=== PATIENT | female | born 1965 | race Caucasian/White ===

== ENCOUNTER 2020-10-05 08:46 | Outpatient (CLI) | payer OTHER, SELFPAY ==
--- NOTE | 2020-10-05 08:49 | MM_ITS ---
WS: [id number] Bilateral screening digital mammogram, 10/05/2020 Clinical Data: SCREENING Comparison: 09/22/2019, 09/21/2018, 09/15/2017, 09/05/2016, 08/30/2015, 07/13/2014, 07/12/2013, 2, 05/02/2011. Findings: The breast parenchymal pattern shows fibroglandular tissue No spiculated masses or clustered calcific ations are seen. There are no secondary signs of carcinoma. MM/[id number] Impression: 1. Negative bilateral mammogram unchanged. 2. Recommend annual screening mammograms. BIRADS: 1-Negative FOLLOW UP: 1 Year Follow-up The CAD relay checker was used.
== END 2020-10-05 08:47 | disposition home or self-care (01) ==
LOC: RADSHAW 08:48
PROVIDERS: PCP Nurse Practitioner Primary Care; Visit Provider Nurse Practitioner
DX: Z12.31 Encounter for screening mammogram for malignant neoplasm of breast (principal)
CPT/HCPCS: 77067

== ENCOUNTER 2021-07-16 06:08 | Day surgery (SDC) | payer OTHER, SELFPAY ==
[2021-07-11 13:24] VITALS: BMI 25.0
--- NOTE | 2021-07-16 06:18 | P.HP_ITS ---
Same Day Surgery H&P Indication for Procedure/HPI DATE OF PROCEDURE: July 16, 2021 CHIEF COMPLAINT/INDICATIONFOR SURGICAL PROCEDURE: Screening colonoscopy PREOP DIAGNOSIS: Screening colonoscopy PLANNED PROCEDRUE: Operation Date: 07/16/21 07:30 Proposed Procedures p Colonoscopy 51278 k59.00(Not Applicable) - Gustavo Lobato MD This is a pleasant 55 years old female patient referred to my practice to discuss potential screening colonoscopy as she had one before few years and was reported as normal except that she had a small colon and also was told that the pediatric scope was used. Patient denies history of polyps or bleeding per rectum or history of colon cancer or nonintentional weight loss. But she does report that she does have an element of constipation. Outside records from the [facility] showed colonoscopy report was found mild smallmouth diverticulosis in the sigmoid colon, internal hemorrhoid tags were found in the rectum, there was no evidence of angiectasia/AVM malformation, colitis, polyps, tumors or melanosis in the colon. Colonoscopy was done on 01/15/2016 Interim history 07/15/2021 Patient comes today for screening colonoscopy Patient reports to me that she was told that her colon was narrow and he had to use a pediatric scope over the [facility], likely demand an EGD or enteroscopy as the [facility] does not carry pediatric service as far as I know. I did explain for the patient and her spouse that if distended colonoscopy is not able to navigate as it should be we will attempt an EGD if that did not work we will send the patient for barium enema at some point. ROS All systems have been reviewed negative except as for the above or per problem list Medications/Allergies* Home Medications Medication Instructions Recorded Confirmed Type estradiol 1 mg tablet 1 mg PO DAILY 04/02/21 07/11/21 History levothyroxine 75 mcg capsule 75 mcg PO DAILY 04/02/21 07/11/21 History Allergies/Adverse Reactions Allergy/AdvReac Type Severity Reaction Status Date / Time Sulfa (Sulfonamide Allergy Intermediate rash Verified 04/04/21 11:52 Antibiotics) Pertinent History/Comorbid Conditions* Family History (Updated 04/02/21 @ 08:28 by Evelia Ann) CAD (coronary artery disease) Mother Father Cancer Mother Father Hypertension Mother Denies family history of Diabetes Stroke Social History Smoking and tobacco status: never smoked Alcohol intake: current Alcohol intake frequency: few times a week Lives independently: Yes Household members: spouse Pertinent Exam Findings alert, oriented x 3, regular rate & rhythm and procedure specific exam findings (Abdominal examination nontender nondistended soft) Recommendations Surgery/Procedure today (Colonoscopy with possible biopsy) Other Plans: Plan of care; After thorough history and physical examination and reviewing the chart, plan to perform screening colonoscopy. I discussed with the patient in details the risks,benefits,alternatives and indications.The risk of aspiration, bleeding, soft tissue injury, perforation of the colon and other potential concomitant complications were explained to the patient in details,also the potential need for Laproscoy/Laparotomy to repair any related complications including but not limited to colectomy and or Closotomy.The patient understood this well and did agree to proceed. Rationale was carefully and clearly discussed with the patient.Appropriate informed consent have been reviewed and signed All questions have been answered and all concerns have been addressed to patient's satisfaction. 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
[2021-07-16 06:37] VITALS: BP 113/67; PULSE 60; RESP 18; TEMP 36.5
[2021-07-16] MEDS: sodium chloride 0.9% 1,000 ML 30 ML IV (06:51)
--- NOTE | 2021-07-16 07:25 | ANES.PREANE2 ---
Pre-Anesthetic Assessment Pre-Anesthetic Assessment: Height/Weight: Height 1.7 m Weight 72.575 kg Temp Pulse Resp BP 97.7 F 60 18 113/67 07/16/21 06:37 07/16/21 06:37 07/16/21 06:37 07/16/21 06:37 Preop Diagnosis: Screening colonoscopy Proposed Procedure: Operation Date: 07/16/21 07:30 Proposed Procedures p Colonoscopy 92474 k59.00(Not Applicable) - Gustavo Lobato MD Was Beta Jay taken within 24 hours: N/A Was Clonidine taken within 24 hours: N/A Last intake: Intake Last Liquid Date 07/15/21 Last Liquid Time 19:00 Last Solid Date 07/14/21 Last Solid Time 20:00 Social: Social History: Alcohol Packs per day: beer Exam: Pre-Anes Outpt Exam: alert Airway: Submandibular: WNL Cervical ROM: WNL MP: 1 Pulmonary: Pulmonary: None reported CV/HEM: CV/HEM: None reported : : None reported Hepatic: Hepatic: None reported GI: GI: None reported Metabolic: Metabolic: Thyroid Musc/skel: Musc/skel: None reported Neuropsych: Neuropsych: Anxiety Anesthetic Plan: ASA status: 2 Anesthesia: Anesthesia Evaluation and MAC Risk of > 500 ml blood loss (7ml/kg in children): No Meds/Allergies Current Medications: Current Medications Generic Name Dose Route Start Last Admin Trade Name Freq PRN Reason Stop Dose Admin Sodium Chloride 1,000 mls @ 30 ml s/hr 07/16/21 06:15 07/16/21 06:51 Sodium Chloride 0.9% IV 30 mls/hr .Q24H COREY Administration PFSH Anesthesia PFSH: Family History Mother CAD (coronary artery disease) Cancer Hypertension Father CAD (coronary artery disease) Cancer Denies family history of Diabetes Stroke Social History Smoking and tobacco status: never smoked Alcohol intake: current Alcohol intake frequency: few times a week Lives independently: Yes Household members: spouse Data Anesthesia Cardiac Studies: No Data to Display
[2021-07-16 07:52] VITALS: BP 80/52; PULSE 62; RESP 18; O2SAT 97
[2021-07-16 08:05] VITALS: BP 92/57; PULSE 62; RESP 18; O2SAT 98
--- NOTE | 2021-07-16 15:35 | ANE.PACU2 ---
Inpatient post-anesthesia follow up: Airway intact: Yes Vital signs: Temperature 97.7 F Pulse Rate 62 Respiratory Rate 18 Blood Pressure 92/57 Pulse Oximetry 98 Oxygen Delivery Me thod Room Air Oxygen Flow Rate Fraction of Inspir ed Oxygen Hydration adequate: Yes Nausea and vomiting: No Pain level: 1 Mental status: Baseline
== END 2021-07-16 08:25 | disposition home or self-care (01) ==
PROVIDERS: PCP Nurse Practitioner Primary Care; Visit Provider Surgery
PROC: 0DJD8ZZ Inspection of Lower Intestinal Tract, Via Natural or Artificial Opening Endoscopic (ICD-10-PCS; CPT 45378; principal; 2021-07-16 07:30)
DX: Z12.11 Encounter for screening for malignant neoplasm of colon (principal)
CPT/HCPCS: 45378; 96360; G0121; J2704; J7030

== ENCOUNTER 2022-01-02 14:10 | Outpatient (CLI) | payer OTHER, SELFPAY ==
--- NOTE | 2022-01-02 14:16 | MM_ITS ---
WS: [id number] BILATERAL DIGITAL SCREENING MAMMOGRAPHY WITH CAD CLINICAL INFORMATION: SCREENING HISTORY: Screening mammogram. No current complaints. COMPARISON: October 05, 2020 TECHNIQUE: Bilateral CC and MLO views. FINDINGS: Scattered fibroglandular densities bilaterally. Stable intramammary lymph nodes upper outer breasts b ilaterally. A few tiny incidental punctate calcifications. No suspicious focal mass, asymmetry, calci fications, or architectural distortion. No evidence of malignancy. MM/[place] [id number] IMPRESSION: BI-RADS: 2-Benign FOLLOW UP: 1 Year Follow-up Recommend return to annual screening mammography.
== END 2022-01-02 14:11 | disposition home or self-care (01) ==
PROVIDERS: PCP Nurse Practitioner Primary Care; Visit Provider Nurse Practitioner
DX: Z12.31 Encounter for screening mammogram for malignant neoplasm of breast (principal)
CPT/HCPCS: 77067

== ENCOUNTER 2023-01-01 20:00 | Outpatient (CLI) | payer OTHER, SELFPAY | END 2023-01-01 20:01 | disposition home or self-care (01) | LOC: SLEEP 01-02 02:41 | PROVIDERS: PCP Nurse Practitioner Primary Care; Visit Provider Nurse Practitioner | DX: R53.83 Other fatigue (principal); R06.83 Snoring; G47.33 Obstructive sleep apnea (adult) (pediatric) | CPT/HCPCS: 95810 ==

== ENCOUNTER 2023-02-21 08:07 | Outpatient (CLI) | payer OTHER, SELFPAY ==
--- NOTE | 2023-02-21 08:34 | MM_ITS ---
WS: [id number] DIAGNOSTIC BILATERAL DIGITAL BREAST TOMOSYNTHESIS MAMMOGRAPHY WITH CAD RIGHT breast ultrasound, limited HISTORY: RT BREAST MASS COMPARISON: None available. TECHNIQUE: Bilateral craniocaudad, mediolateral oblique, and mediolateral views are submitted with to mosynthesis and SM. Spot compression RIGHT CC and MLO. Computer aided detection utilized. Breast composition: There are scattered areas of fibroglandular density. No underlying mass is identi fied in the upper-outer quadrant in the region of the palpable abnormality. Benign lymph nodes along the axillary tails of each breast. No distortion. RIGHT breast ultrasound, limited. Ultrasound is directed to the upper-outer quadrant of the RIGHT breast in the area the palpable abnor mality. This is near 12:00. No abnormality is identified. MM/[place] [id number] IMPRESSION: BI-RADS: 2-Benign FOLLOW UP: 1 Year Follow-up
--- NOTE | 2023-02-21 09:38 | US_ITS ---
WS: [id number] DIAGNOSTIC BILATERAL DIGITAL BREAST TOMOSYNTHESIS MAMMOGRAPHY WITH CAD RIGHT breast ultrasound, limited HISTORY: RT BREAST MASS COMPARISON: None available. TECHNIQUE: Bilateral craniocaudad, mediolateral oblique, and mediolateral views are submitted with to mosynthesis and SM. Spot compression RIGHT CC and MLO. Computer aided detection utilized. Breast composition: There are scattered areas of fibroglandular density. No underlying mass is identi fied in the upper-outer quadrant in the region of the palpable abnormality. Benign lymph nodes along the axillary tails of each breast. No distortion. RIGHT breast ultrasound, limited. Ultrasound is directed to the upper-outer quadrant of the RIGHT breast in the area the palpable abnor mality. This is near 12:00. No abnormality is identified. US/US breast RT limited* [id number] IMPRESSION: BI-RADS: 2-Benign FOLLOW UP: 1 Year Follow-up
== END 2023-02-21 08:08 | disposition home or self-care (01) ==
LOC: RAD 08:10
PROVIDERS: PCP Nurse Practitioner Family; Visit Provider Nurse Practitioner
DX: N63.41 Unspecified lump in right breast, subareolar (principal)
CPT/HCPCS: 76642; 77062; G0279

== ENCOUNTER → 2023-06-02 09:55 | Outpatient (BNVA) | payer OTHER, SELFPAY | PROVIDERS: PCP Nurse Practitioner Family; Visit Provider Podiatrist Foot & Ankle Surgery | DX: M20.22 Hallux rigidus, left foot (principal); M20.21 Hallux rigidus, right foot; M25.872 Other specified joint disorders, left ankle and foot; M21.611 Bunion of right foot; M21.612 Bunion of left foot | CPT/HCPCS: 73630; 99204 ==

== ENCOUNTER → 2023-12-29 13:32 | Outpatient (BNVA) | payer OTHER, SELFPAY | PROVIDERS: PCP Nurse Practitioner Family; Visit Provider Podiatrist Foot & Ankle Surgery | DX: M20.22 Hallux rigidus, left foot (principal); M20.21 Hallux rigidus, right foot; M25.872 Other specified joint disorders, left ankle and foot; M21.611 Bunion of right foot; M21.612 Bunion of left foot | CPT/HCPCS: 99213 ==

== ENCOUNTER → 2024-03-22 13:32 | Outpatient (BNVA) | payer OTHER, SELFPAY | PROVIDERS: PCP Nurse Practitioner Family; Referring Provider Nurse Practitioner; Visit Provider Obstetrics & Gynecology | DX: R39.9 Unspecified symptoms and signs involving the genitourinary system (principal); Z01.419 Encounter for gynecological examination (general) (routine) without abnormal findings | CPT/HCPCS: 81000 ==

== ENCOUNTER 2024-03-23 13:51 | Outpatient (CLI) | payer OTHER, SELFPAY ==
--- NOTE | 2024-03-23 14:00 | MM_ITS ---
WS: [id number] BILATERAL 3D TOMOSYNTHESIS DIGITAL SCREENING MAMMOGRAPHY WITH CAD CLINICAL INFORMATION: SCREENING HISTORY: Screening mammogram. No current complaints. COMPARISON: 02/21/2023 TECHNIQUE: Bilateral CC and MLO views. FINDINGS: Scattered fibroglandular densities bilaterally. No suspicious focal mass, asymmetry, calcifications, or architectural distortion. No evidence of malignancy. Similar-appearing incidental intramammary lym ph nodes. Incidental punctate calcifications. MM/[place] [id number] IMPRESSION: BI-RADS: 2-Benign FOLLOW UP: 1 Year Follow-up Recommend return to annual screening mammography.
== END 2024-03-23 13:52 | disposition home or self-care (01) ==
LOC: MOBLMAM 14:04
PROVIDERS: PCP Nurse Practitioner; Visit Provider Nurse Practitioner
DX: Z12.31 Encounter for screening mammogram for malignant neoplasm of breast (principal); R92.323 Mammographic fibroglandular density, bilateral breasts
CPT/HCPCS: 77063; 77067

== ENCOUNTER → 2024-04-21 09:56 | Outpatient (BNVA) | payer OTHER, SELFPAY | PROVIDERS: PCP Nurse Practitioner; Referring Provider Nurse Practitioner; Visit Provider Internal Medicine | DX: E03.8 Other specified hypothyroidism (principal); E06.3 Autoimmune thyroiditis; R53.83 Other fatigue; Z86.69 Personal history of other diseases of the nervous system and sense organs; M21.611 Bunion of right foot; M21.612 Bunion of left foot; M20.22 Hallux rigidus, left foot; M20.21 Hallux rigidus, right foot; M25.872 Other specified joint disorders, left ankle and foot | CPT/HCPCS: 99204; 99213 ==

== ENCOUNTER 2024-06-22 09:25 | Outpatient (CLI) | payer OTHER, SELFPAY ==
[2024-06-22 10:30] LABS: Free T4 Free Thyroxine 1.32 ng/dL (0.82-1.77)
[2024-06-23 09:48] LABS: T3 Total 97 ng/dL (76-181)
== END 2024-06-22 09:26 | disposition home or self-care (01) ==
LOC: LAB 09:26
PROVIDERS: PCP Nurse Practitioner; Visit Provider Internal Medicine
DX: E03.9 Hypothyroidism, unspecified (principal)
CPT/HCPCS: 36415; 83516; 84439; 84443; 84480

== ENCOUNTER → 2024-07-01 07:43 | Outpatient (BNVA) | payer OTHER, SELFPAY | PROVIDERS: PCP Nurse Practitioner; Visit Provider Internal Medicine | DX: E03.8 Other specified hypothyroidism (principal); E06.3 Autoimmune thyroiditis; R53.83 Other fatigue; Z86.69 Personal history of other diseases of the nervous system and sense organs; Z79.890 Hormone replacement therapy | CPT/HCPCS: 99214 ==

== ENCOUNTER 2024-09-06 13:48 | Outpatient (CLI) | payer OTHER, SELFPAY ==
[2024-09-06 15:02] LABS: Thyroid Stimulating Hormone 0.87 uIU/mL (0.27-4.20)
[2024-09-07 08:09] LABS: T3 Total 156 ng/dL (76-181)
== END 2024-09-06 13:49 | disposition home or self-care (01) ==
LOC: LAB 13:49
PROVIDERS: PCP Nurse Practitioner; Visit Provider Internal Medicine
DX: E03.8 Other specified hypothyroidism (principal); E06.3 Autoimmune thyroiditis
CPT/HCPCS: 36415; 84439; 84443; 84480

== ENCOUNTER → 2024-10-14 09:16 | Outpatient (BNVA) | payer OTHER, SELFPAY | PROVIDERS: PCP Nurse Practitioner; Visit Provider Internal Medicine | DX: E03.8 Other specified hypothyroidism (principal); E06.3 Autoimmune thyroiditis; R53.83 Other fatigue; Z86.69 Personal history of other diseases of the nervous system and sense organs; Z79.890 Hormone replacement therapy | CPT/HCPCS: 99214 ==

== ENCOUNTER → 2024-12-21 08:15 | Outpatient (BNVA) | payer OTHER, SELFPAY | PROVIDERS: PCP Nurse Practitioner; Visit Provider Internal Medicine | DX: E03.8 Other specified hypothyroidism (principal); E06.3 Autoimmune thyroiditis; R53.83 Other fatigue; Z86.69 Personal history of other diseases of the nervous system and sense organs | CPT/HCPCS: 36415; 84439; 84443; 99214 ==

== ENCOUNTER → 2025-01-19 09:18 | Outpatient (BNVA) | payer OTHER, SELFPAY | PROVIDERS: PCP Nurse Practitioner; Visit Provider Podiatrist Foot & Ankle Surgery | DX: M21.611 Bunion of right foot (principal); M21.612 Bunion of left foot; M20.22 Hallux rigidus, left foot; M20.21 Hallux rigidus, right foot; M25.872 Other specified joint disorders, left ankle and foot | CPT/HCPCS: 99213 ==

== ENCOUNTER 2025-02-08 09:27 | Outpatient (CLI) | payer OTHER, SELFPAY ==
--- NOTE | 2025-02-08 09:30 | MR_ITS ---
WS: [id number] MRI LUMBAR SPINE NONCONTRAST TECHNIQUE: Sagittal T1, T2 and STIR imaging. Axial T1 and T2 imaging. CLINICAL INFORMATION: LOW BACK PAIN COMPARISON: None. FINDINGS: Mild lumbar curve. No acute compression. Disc desiccation worse at L4-L5 and L5- S1 with endplate degenerative changes. Slight retrolisthesis L4 on L5 and L5 on S1. Mild disc bulging L3-4. L1-L2: Mild annular bulging. Mild facet arthropathy. Foramen are patent. L2-L3: Mild annular bulging. Mild facet arthropathy. Spinal canal and foramen are patent. L3-L4: Mild annular bulging. Moderate central canal stenosis. Impingement of the RIGHT greater than LEFT subarticular recess. Mild RIGHT foraminal narrowing with a small RIGHT foraminal protrusion. Small RIGHT synovial cyst contributes to impingement on the RIGHT subarticular recess. Synovial cyst measures 6 mm. Moderate facet arthropathy with small facet effusions. L4-L5: Mild disc bulging with mild central canal stenosis. Impingement on the traversing L5 nerve roots in the subarticular recess. Moderate LEFT foraminal narrowing. Moderate facet arthropathy. L5-S1: Disc osteophyte complex with impingement on the RIGHT S1 nerve root. Correlation S1 nerve root symptoms. Moderate LEFT greater than RIGHT foraminal narrowing. Moderate facet arthropathy. Visualized pelvic bony structures: Normal. Paravertebral soft tissues: Normal. Cholelithiasis. MR/MR lumbar spine wo con* [id number] IMPRESSION: 1. Cholelithiasis. This could be followed-up with ultrasound. 2. Moderate central canal stenosis L3-4 with impingement subarticular recess. RIGHT 6 mm synovial cyst contributes to RIGHT subarticular recess stenosis. 3. Small RIGHT foraminal protrusion L3-4 impinges the exiting RIGHT L3 nerve r oot. 4. Mild central canal stenosis L4-5. Impingement traversing L5 nerve roots in the subarticular recess. Moderate LEFT foraminal narrowing at this level. 5. Disc osteophyte complex L5-S1 with impingement RIGHT S1 nerve root. Recomme nd correlation RIGHT S1 nerve root symptoms. 6. Moderate LEFT greater than RIGHT L5-S1 foraminal narrowing.
== END 2025-02-08 09:28 | disposition home or self-care (01) ==
PROVIDERS: PCP Nurse Practitioner; Visit Provider Nurse Practitioner
DX: M48.061 Spinal stenosis, lumbar region without neurogenic claudication (principal); K80.20 Calculus of gallbladder without cholecystitis without obstruction; M71.38 Other bursal cyst, other site; M51.26 Other intervertebral disc displacement, lumbar region; R93.7 Abnormal findings on diagnostic imaging of other parts of musculoskeletal system; M25.78 Osteophyte, vertebrae; M48.07 Spinal stenosis, lumbosacral region; M43.8X6 Other specified deforming dorsopathies, lumbar region; M51.369 Other intervertebral disc degeneration, lumbar region without mention of lumbar back pain or lower extremity pain; M47.896 Other spondylosis, lumbar region; M47.897 Other spondylosis, lumbosacral region
CPT/HCPCS: 72148

== ENCOUNTER 2025-03-02 08:25 | Outpatient (CLI) | payer OTHER, SELFPAY ==
--- NOTE | 2025-03-02 08:30 | US_ITS ---
WS: [id number] RIGHT UPPER QUADRANT ULTRASOUND HISTORY: GALLSTONES/RUQ PAIN COMPARISON: None available. Liver: 14.2 cm in length. Normal size liver and echogenicity. No bile duct dilatation or mass. Portal Vein: Normal hepatopetal flow with monophasic waveform. Gallbladder: Cholelithiasis. Normally distended gallbladder with numerous stones. No pericholecystic fluid or gallbladder wall thickening. CBD: 0.3 cm Pancreas: Normal size and echogenicity. Right kidney: 10.0 cm in length. Normal size and echogenicity. No hydronephrosis or mass. Aorta and IVC: Unremarkable abdominal aorta and IVC. No ascites. US/US abdomen limited [id number] IMPRESSION: 1. Cholelithiasis without acute cholecystitis. Numerous stones within the gall bladder lumen. 2. No hepatobiliary duct dilatation.
[2025-03-02 10:55] LABS: Thyroid Stimulating Hormone 3.88 uIU/mL (0.27-4.20)
== END 2025-03-02 08:26 | disposition home or self-care (01) ==
PROVIDERS: Absent Provider Internal Medicine; PCP Nurse Practitioner; Visit Provider Nurse Practitioner
DX: K80.20 Calculus of gallbladder without cholecystitis without obstruction (principal); E06.3 Autoimmune thyroiditis; E03.8 Other specified hypothyroidism
CPT/HCPCS: 36415; 76705; 84443

== ENCOUNTER 2025-04-19 08:49 | Outpatient (CLI) | payer OTHER, SELFPAY ==
--- NOTE | 2025-04-19 09:00 | MM_ITS ---
WS: [id number] BILATERAL 3D TOMOSYNTHESIS DIGITAL SCREENING MAMMOGRAPHY WITH CAD CLINICAL INFORMATION: SCREENING HISTORY: Screening mammogram. No current complaints. COMPARISON: 2023 TECHNIQUE: Bilateral CC and MLO views. FINDINGS: Scattered fibroglandular densities bilaterally. No suspicious focal mass, asymmetry, calcifications, or architectural distortion. No evidence of malignancy. A few stable incidental intramammary lymph nodes. Skin calcifications. MM/MM scr tomosynthesis [id number] IMPRESSION: DENSITY: There are scattered areas of fibroglandular density. BI-RADS: 2 - Benign. FOLLOW UP: 1 Year Follow-up Recommend return to annual screening mammography.
== END 2025-04-19 08:50 | disposition home or self-care (01) ==
PROVIDERS: PCP Nurse Practitioner; Visit Provider Nurse Practitioner
DX: Z12.31 Encounter for screening mammogram for malignant neoplasm of breast (principal); R92.323 Mammographic fibroglandular density, bilateral breasts; R59.0 Localized enlarged lymph nodes; R92.1 Mammographic calcification found on diagnostic imaging of breast
CPT/HCPCS: 77063; 77067

== ENCOUNTER 2025-06-03 11:08 | Outpatient (CLI) | payer OTHER, SELFPAY ==
[2025-06-03 13:03] LABS: Free T4 Free Thyroxine 1.45 ng/dL (0.82-1.77)
[2025-06-06 11:46] LABS: Thyroid Stimulating Hormone 1.41 uIU/mL (0.27-4.20)
== END 2025-06-03 11:09 | disposition home or self-care (01) ==
LOC: LAB 11:09
PROVIDERS: PCP Nurse Practitioner; Visit Provider Internal Medicine
DX: E06.3 Autoimmune thyroiditis (principal); E03.8 Other specified hypothyroidism
CPT/HCPCS: 36415; 84439; 84443

== ENCOUNTER → 2025-06-21 08:10 | Outpatient (BNVA) | payer OTHER, SELFPAY | PROVIDERS: PCP Nurse Practitioner; Visit Provider Internal Medicine | DX: E06.3 Autoimmune thyroiditis (principal); E03.8 Other specified hypothyroidism; Z86.69 Personal history of other diseases of the nervous system and sense organs | CPT/HCPCS: 99214 ==

== ENCOUNTER 2025-11-21 09:46 | Outpatient (CLI) | payer OTHER, SELFPAY ==
--- NOTE | 2025-11-21 10:00 | US_ITS ---
WS: [id number] THYROID ULTRASOUND HISTORY: Hypothyroidism. COMPARISON: None available. Right lobe: 1.2 cm x 1.4 cm x 3.4 cm (w x ap x l). Volume: 2.6 cm3. Heterogeneous thyroid. No discrete nodule. Areas of decreased and increased echogenicity and is slightly nodular surface appearance. Mild increased vascularity. No echogenic foci. Left lobe: 1.0 cm x 1.1 cm x 3.8 cm (w x ap x l). Volume: 1.9 cm3. Small caliber gland and diffuse mild heterogeneity. No mass. Mild increased vascularity. Isthmus: 0.2 cm. US/US thyroid [id number] IMPRESSION: 1. Heterogeneous thyroid gland. No discrete nodules or masses. 2. Thyroid gland is mildly atrophic.
== END 2025-11-21 09:47 | disposition home or self-care (01) ==
LOC: RAD 09:46
PROVIDERS: PCP Nurse Practitioner; Visit Provider Internal Medicine
DX: E03.4 Atrophy of thyroid (acquired) (principal); R93.89 Abnormal findings on diagnostic imaging of other specified body structures; Z86.69 Personal history of other diseases of the nervous system and sense organs; R53.83 Other fatigue; E03.8 Other specified hypothyroidism; E06.3 Autoimmune thyroiditis
CPT/HCPCS: 76536